=== PATIENT | male | born 1955 | race Caucasian/White ===

== ENCOUNTER → 2023-10-23 | Emergency (ER) | payer OTHER ==
[2023-10-23 14:54] LABS: Absolute Lymphocytes (CBC) 1.6 K/uL (0.7-4.9); Hematocrit 45.3 % (39.6-49.0); Lymphocytes % 21.4 % (15.3-44.8); MCV 90.1 fL (80-100); MPV 10.1 fL (7.6-11.3); Platelets 151 thou/uL (152-406); RBC Red Blood Cell Count 5.03 M/uL (4.33-5.43)
[2023-10-23 15:02] LABS: Protime INR 1.12
[2023-10-23 15:12] LABS: Albumin 3.9 g/dL (3.4-5.0); Bilirubin Direct 0.1 mg/dL (0-0.2); Bilirubin Indirect, Calculated 0.4 mg/dL (0.2-0.8); Bilirubin Total 0.5 mg/dL (0.2-1.0); Magnesium 2.2 mg/dL (1.6-2.4); Potassium 4.1 mEq/L (3.5-5.1); Protein, Total 7.4 g/dL (6.4-8.2); Troponin High Sensitivity 9.9 pg/mL (<58.9)
--- NOTE | 2023-10-23 15:21 | RAD REPORT ---
EXAM DESCRIPTION: [place] Single View10/23/2023 2:45 pm CLINICAL HISTORY: CHEST PAIN COMPARISON: No comparisons TECHNIQUE: Portable AP view of the chest. FINDINGS: The lungs are clear. No pneumothorax or effusion. The cardiomediastinal contours are unre markable. IMPRESSION: No acute cardiopulmonary process.
--- NOTE | 2023-10-23 16:28 | EDPHYS ---
Physician Documentation [facility] Name: Jean Hough Age: 68 yrs Sex: Male : 1955 Arrival Date: 10/23/2023 Time: 13:58 Bed 14 Private MD: ED Physician Gaston Singh HPI: 10/23 14:39 This 68 yrs old Male presents to ER via Ambulatory with complaints of Chest Pain. sp3 14:39 68-year-old male with history of hypertension and prior myocardial infarction that was sp3 diagnosed in retrospect in [place] in November 2022 now presents to the ED with mild chest pain substernal rating to the left side for 5 days. Patient initially thought it was a muscle cramp but since it has persisted he decided to come in for evaluation. He does not have a local PCP until today and he went into the office and was seen by the nurse practitioner who then referred him to the ED secondary to chest pain. He denies any other symptoms including headache, fever, cough, URI symptoms, shortness of breath, back pain, abdominal pain, nausea, vomiting, diarrhea, syncope, near syncope, focal neurological deficit, known sick contacts, travel history, or any other signs or symptoms on ROS at this time. He is currently only on medications for high blood pressure and he takes an aspirin.. Historical: - Allergies: 14:17 No Known Allergies; ph - PMHx: 14:17 Hypertensive disorder; ph - Immunization history:: Adult Immunizations unknown. - Social history:: Smoking status: Patient denies any tobacco usage or history of. ROS: 14:43 Constitutional: Negative for fever, chills, and weight loss, Eyes: Negative for injury, sp3 pain, redness, and discharge, ENT: Negative for injury, pain, and discharge, Neck: Negative for injury, pain, and swelling, Respiratory: Negative for shortness of breath, cough, wheezing, and pleuritic chest pain, Abdomen/GI: Negative for abdominal pain, nausea, vomiting, diarrhea, and constipation, Back: Negative for injury and pain, MS/Extremity: Negative for injury and deformity, Skin: Negative for injury, rash, and discoloration, Neuro: Negative for headache, weakness, numbness, tingling, and seizure, Psych: Negative for depression, anxiety, suicide ideation, homicidal ideation, and hallucinations, Allergy/Immunology: Negative for hives, rash, and allergies, Endocrine: Negative for neck swelling, polydipsia, polyuria, polyphagia, and marked weight changes, Hematologic/Lymphatic: Negative for swollen nodes, abnormal bleeding, and unusual bruising, 14:43 All other systems are negative, Exam: 14:43 Constitutional: This is a well developed, well nourished patient who is awake, alert, sp3 and in no acute distress. Head/Face: Normocephalic, atraumatic. Eyes: Pupils equal round and reactive to light, extra-ocular motions intact. Lids and lashes normal. Conjunctiva and sclera are non-icteric and not injected. Cornea within normal limits. Periorbital areas with no swelling, redness, or edema. Neck: Trachea midline, no thyromegaly or masses palpated, and no cervical lymphadenopathy. Supple, full range of motion without nuchal rigidity, or vertebral point tenderness. No Meningismus. Chest/axilla: Normal chest wall appearance and motion. Nontender with no deformity. No lesions are appreciated. Cardiovascular: Regular rate and rhythm with a normal S1 and S2. No gallops, murmurs, or rubs. Normal PMI, no JVD. No pulse deficits. Respiratory: Lungs have equal breath sounds bilaterally, clear to auscultation and percussion. No rales, rhonchi or wheezes noted. No increased work of breathing, no retractions or nasal flaring. Abdomen/GI: Soft, non-tender, with normal bowel sounds. No distension or tympany. No guarding or rebound. No evidence of tenderness throughout. Back: No spinal tenderness. No costovertebral tenderness. Full range of motion. Skin: Warm, dry with normal turgor. Normal color with no rashes, no lesions, and no evidence of cellulitis. MS/ Extremity: Pulses equal, no cyanosis. Neurovascular intact. Full, normal range of motion. Neuro: Awake and alert, GCS 15, oriented to person, place, time, and situation. Cranial nerves II-XII grossly intact. Motor strength 5/5 in all extremities. Sensory grossly intact. Cerebellar exam normal. Normal gait. Psych: Awake, alert, with orientation to person, place and time. Behavior, mood, and affect are within normal limits. 14:43 ECG was reviewed by the Attending Physician. EKG demonstrates normal sinus rhythm at 80 bpm with normal intervals, leftward axis, nonspecific diffuse ST/T changes with old appearing Q waves inferiorly without any ST elevation. Vital Signs: 14:16 BP 180 / 91; Pulse 79; Resp 18; Temp 97.8; Pulse Ox 97% on R/A; ph 14:46 BP 114 / 68; Pulse 71; Resp 17; Pulse Ox 98% on R/A; kd3 15:37 BP 117 / 67; Pulse 68; Resp 17; Pulse Ox 100% on R/A; kd3 16:42 BP 116 / 72; Pulse 87; Resp 17; Pulse Ox 99% on R/A; kd3 MDM: 14:10 Patient medically screened. 3 14:45 Data reviewed: vital signs, nurses notes, lab test result(s), EKG, radiologic studies. 3 ED course: 68-year-old male with hypertension prior NE and now chest pain. Differential diagnosis includes acute coronary syndrome spectrum, musculoskeletal pain, pleurisy, pulmonary pathology, GERD/gastritis, among others. I am not highly suspicious for vascular pathology including aortic dissection and/or aneurysm, sepsis, shock, or any other critical process at this time.. 15:24 ED course: Initial troponin is negative along with the rest of the workup. Patient's 3 heart score is a 3 secondary to nonspecific EKG changes, age and risk factor of prior cardiac history. Will obtain additional troponin level and have patient follow-up with cardiology outpatient. Will give referral for Dr. Us. Patient already has a new PCP that he is plugged into which he saw today.. 16:27 ED course: Second troponin is negative. I explained the heart score algorithm to 3 patient and he agrees he would rather go home. Will arrange outpatient follow-up and safely discharged home at this time. He knows to return anytime if his pain returns or gets worse.. 10/23 14:10 Order name: Basic Metabolic Panel; Complete Time: : 3 10/23 14:10 Order name: CBC with Diff; Complete Time: : 3 10/23 14:10 Order name: LFT's; Complete Time: 15: 3 10/23 14:10 Order name: Magnesium; Complete Time: : 3 10/23 14:10 Order name: NT PRO-BNP; Complete Time: 15: sp3 10/23 14:10 Order name: PT-INR; Complete Time: 15:22 sp3 10/23 14:10 Order name: Troponin HS; Complete Time: 15:22 sp3 10/23 15:24 Order name: Troponin High Sensitivity; Complete Time: 16:26 sp3 10/23 14:10 Order name: XRAY Chest (1 view); Complete Time: 15:22 sp3 10/23 14:10 Order name: EKG; Complete Time: 14:11 sp3 10/23 14:10 Order name: Cardiac monitoring; Complete Time: 14:37 sp3 10/23 14:10 Order name: EKG - Nurse/Tech; Complete Time: 14:19 sp3 10/23 14:10 Order name: IV Saline Lock; Complete Time: 14:37 sp3 10/23 14:10 Order name: Labs collected and sent; Complete Time: 14:37 sp3 10/23 14:10 Order name: O2 Per Protocol; Complete Time: 14:37 sp3 10/23 14:10 Order name: O2 Sat Monitoring; Complete Time: 14:37 sp3 Administered Medications: No medications were administered Disposition Summary: 10/23/23 16:27 Discharge Ordered Notes: Location: Home sp3 Condition: Stable sp3 Diagnosis - Chest pain, unspecified sp3 Followup: sp3 - With: Private Physician - When: Upon discharge from the Emergency Department - Reason: Continuance of care Followup: sp3 - With: Wiliam Us MD - When: Upon discharge from the Emergency Department - Reason: Recheck today's complaints Discharge Instructions: - Discharge Summary Sheet sp3 - Nonspecific Chest Pain, Adult sp3 Forms: - Medication Reconciliation Form sp3 - Thank You Letter sp3 - Antibiotic Education sp3 - Prescription Opioid Use sp3 - Patient Portal Instructions sp3 - Leadership Thank You Letter sp3 Signatures: Dispatcher [employer] Riri Benton RN RN Gaston Jenkins MD MD sp3
--- NOTE | 2023-10-23 16:28 | ER ---
Nurse's Notes [facility] Name: Jean Hough Age: 68 yrs Sex: Male : 1955 Arrival Date: 10/23/2023 Time: 13:58 Bed 14 Private MD: Diagnosis: Chest pain, unspecified Presentation: 10/23 14:16 Chief complaint: Patient states: L sided chest pain x 3-4 days, denies SOB, N/V or ph dizziness. Coronavirus screen: Vaccine status: Patient reports receiving the 2nd dose of the covid vaccine. Ebola Screen: No symptoms or risks identified at this time. Initial Sepsis Screen: Does the patient meet any 2 criteria? No. Patient's initial sepsis screen is negative. Does the patient have a suspected source of infection? No. Patient's initial sepsis screen is negative. Risk Assessment: Do you want to hurt yourself or someone else? Patient reports no desire to harm self or others. Onset of symptoms was October 23, 2023. 14:16 Method Of Arrival: Ambulatory ph 14:16 Acuity: PRAKASH 3 ph Triage Assessment: 15:40 General: Appears in no apparent distress. Behavior is calm, cooperative. Pain: kd3 Complains of pain in chest. Historical: - Allergies: 14:17 No Known Allergies; ph - PMHx: 14:17 Hypertensive disorder; ph - Immunization history:: Adult Immunizations unknown. - Social history:: Smoking status: Patient denies any tobacco usage or history of. Screenin:39 [facility] ED Fall Risk Assessment (Adult) History of falling in the last 3 months, kd3 including since admission No falls in past 3 months (0 pts) Confusion or Disorientation No (0 pts) Intoxicated or Sedated No (0 pts) Impaired Gait No (0 pts) Mobility Assist Device Used No (0 pt) Altered Elimination No (0 pt) Score/Fall Risk Level 0 - 2 = Low Risk Maintained a safe environment. Abuse screen: Denies threats or abuse. Denies injuries from another. Nutritional screening: No deficits noted. Tuberculosis screening: No symptoms or risk factors identified. Assessment: 15:37 General: Pt seen sitting in the stretcher, vital signs are stable. Pt is alert and kd3 oriented x 4, speaking with the provider. Plan to repeat troponin. . Pain: Pain does not radiate. Pain began gradually. Cardiovascular: Patient's skin is warm and dry. 16:04 General: repeat troponin collected and sent to the lab. Pt has no new requests at this kd3 time. . Vital Signs: 14:16 BP 180 / 91; Pulse 79; Resp 18; Temp 97.8; Pulse Ox 97% on R/A; ph 14:46 BP 114 / 68; Pulse 71; Resp 17; Pulse Ox 98% on R/A; kd3 15:37 BP 117 / 67; Pulse 68; Resp 17; Pulse Ox 100% on R/A; kd3 16:42 BP 116 / 72; Pulse 87; Resp 17; Pulse Ox 99% on R/A; kd3 ED Course: 14:01 Patient arrived in ED. im 14:01 Gaston Singh MD is Attending Physician. sp3 14:17 Triage completed. ph 14:18 Arm band placed on Patient placed in an exam room, on a stretcher. EKG completed in ph triage. Results shown to MD. 14:35 Initial lab(s) drawn, by ny, sent to lab. Inserted saline lock: 20 gauge in right aa5 antecubital area, using aseptic technique. Blood collected. 14:37 Zeny Tian, RN is Primary Nurse. kd3 14:37 Troponin HS Sent. kd3 14:37 PT-INR Sent. kd3 14:37 NT PRO-BNP Sent. kd3 14:37 Magnesium Sent. kd3 14:37 LFT's Sent. kd3 14:37 CBC with Diff Sent. kd3 14:37 Basic Metabolic Panel Sent. kd3 14:46 XRAY Chest (1 view) In Process Unspecified. EDMS 15:39 Patient has correct armband on for positive identification. Provided Education on: . kd3 Client placed on continuous cardiac and pulse oximetry monitoring. NIBP monitoring applied. security monitor on. 15:40 No provider procedures requiring assistance completed. Patient maintains SpO2 kd3 saturation greater than 95% on room air. 16:27 Wiliam Us MD is Referral Physician. sp3 16:42 IV discontinued, intact, bleeding controlled, No redness/swelling at site. Pressure kd3 dressing applied. Administered Medications: No medications were administered Medication: 15:40 VIS not applicable for this client. kd3 Outcome: 16:27 Discharge ordered by . sp3 16:42 Discharged to home ambulatory, kd3 16:42 Condition: stable 16:42 Discharge instructions given to patient, family, Instructed on discharge instructions, follow up and referral plans. Demonstrated understanding of instructions, follow-up care, 16:43 Patient left the ED. kd3 Signatures: Dispatcher [employer] Rhona Klein RN RN aa5 Riri Guerra RN RN Gaston Jenkins MD MD sp3 Zeny Tian RN RN kd3 Lydia Vazquez
[2023-10-23 18:58] VITALS: TEMP 97.8
[2023-10-23 19:10] VITALS: BP 116/72; O2SAT 99
--- NOTE | 2023-10-24 13:24 | EKG ---
Test Date: 2023-10-23 Test Time: 14:12:50 Hotel Security Officer: PH MEASUREMENT RESULTS: Intervals: Rate: 79 MO: 182 QRSD: 88 QT: 356 QTc: 408 [place]: P: 67 MO: 182 QRS: 4 T: 27 INTERPRETIVE STATEMENTS: Normal sinus rhythm Inferior infarct, age undetermined Anterior infarct, age undetermined Abnormal ECG No previous ECG available for comparison Electronically Signed On 10-24-23 13:22:44 PLATE SLITTER AND INSPECTOR by Wiliam Us
== END ==
LOC: ER 13:58
DX: R07.89 Other chest pain (principal); I10 Essential (primary) hypertension
CPT/HCPCS: 36415; 71045; 80048; 80076; 83735; 83880; 84484; 85025; 85610; 93005; 99285